=== PATIENT | female | born 1940 | race African-American/Black ===

== ENCOUNTER 2017-06-10 19:09 | Inpatient (IN) | payer OTHER ==
[~2017-06-10] VITALS: Ht 162.6 cm; Wt 65.3 kg
[~2017-06-10 19:09] MED LIST: IOHEXOL-350 100 ML BOTTLE ONE; SODIUM CHLORIDE 0.9% 10ML VIAL ONE
[2017-06-10] MEDS ORDERED: ATOR80TA (19:20)
[2017-06-10] MEDS ORDERED: METO-411 (19:20)
[2017-06-10] MEDS ORDERED: HYDR25TA (19:20)
[2017-06-10] MEDS ORDERED: FLUOXETINE (19:20)
[2017-06-10] MEDS ORDERED: AMLODIPINE (19:20)
[2017-06-10] MEDS ORDERED: SODIUM CHLORIDE 0.9% 500 ML IV ONE (19:27)
[2017-06-10 19:56] LABS: BASOPHILS % 1.1 % (0.0-2.0); EOSINOPHILS % 0.8 % (0.0-5.0); HEMATOCRIT. 37.1 % (36.0-48.0); HEMOGLOBIN. 12.1 g/dL (12.0-16.0); LYMPHOCYTES % 13.5 % (20.0-50.0); MEAN CORPUSCULAR HEMOGLOBIN 28.3 pg (28.0-32.0); MEAN CORPUSCULAR VOLUME 86.5 fL (81.0-99.0); MEAN PLATELET VOLUME 7.7 fl (7.4-10.4); MONOCYTES % 6.3 % (2.0-8.0); NEUTROPHILS % 78.3 % (40.0-76.0); PLATELET 278 x1000/uL (130-400); RED BLOOD CELL COUNT 4.29 mill/uL (4.2-5.4); RED CELL DISTRIBUTION WIDTH 13.6 % (11.6-14.6)
[2017-06-10 20:00] LABS: CHLORIDE 99 mEq/L (98-107)
[2017-06-10 20:01] LABS: INR 1.1; PARTIAL THROMBOPLASTIN TIME 26.4 sec (23.4-31.0); PROTHROMBIN TIME 11.9 sec (9.4-11.6)
[2017-06-10 20:02] LABS: CARBON DIOXIDE 30 mEq/L (21-32)
[2017-06-10 20:10] LABS: CREATINE KINASE 156 IU/L (26-192); CREATINE KINASE MB FRACTION 1.2 ng/mL (0.5-3.6); TROPONIN I < 0.02 ng/mL (0.00-0.04)
[2017-06-10 21:48] LABS: CLARITY URINE CLEAR (CLEAR); COLOR URINE YELLOW (YELLOW); GLUCOSE URINE NEGATIVE (NEGATIVE); KETONES URINE NEGATIVE (NEGATIVE); LEUKOCYTE ESTERASE URINE NEGATIVE (NEGATIVE); NITRITE URINE NEGATIVE (NEGATIVE); OCCULT BLOOD URINE NEGATIVE (NEGATIVE); PROTEIN URINE NEGATIVE (NEGATIVE); SPECIFIC GRAVITY URINE 1.015 (1.005-1.030); UROBILINOGEN URINE 0.2 E.U./dL (0.2-1.0)
[2017-06-10] MEDS ORDERED: MAGNESIUM 1 G PREMIX 100 ML IV ONE (23:30)
[2017-06-10] MEDS ORDERED: HYDROCODONE/ACETAMINOPHEN 5/325MG TABLET PO ONE (23:30)
[2017-06-11] VITALS (8 sets, daily range): BP systolic 104–135; BP diastolic 60–71
[2017-06-11] MEDS ORDERED: AMLO2.5T45 PO (01:46)
[2017-06-11] MEDS ORDERED: ATOR80TA PO (01:46)
[2017-06-11] MEDS ORDERED: LORAZEPAM 1MG TABLET PO NR (08:45)
[2017-06-11] MEDS ORDERED: MEDICATION NOT ON FORMULARY EA (Atorvastatin Calcium (Lipitor) 1 TAB) PO SCH (09:00)
[2017-06-11] MEDS ORDERED: AMLODIPINE 2.5MG TABLET PO SCH (09:00)
[2017-06-11] MEDS ORDERED: AMLODIPINE 5MG TABLET PO SCH (12:45)
[2017-06-11] MEDS: HYDROCODONE/ACETAMINOPHEN 10/325MG TABLET PO PRN ×2 (13:34→20:41)
[2017-06-11] MEDS: ATORVASTATIN CALCIUM 20MG TABLET PO SCH (20:41)
[2017-06-11] MEDS ORDERED: ATORVASTATIN CALCIUM 40MG TABLET PO SCH (21:00)
[2017-06-12 04:01] VITALS: BP 108/59
[2017-06-12 07:21] LABS: *AMPHETAMINES SCREEN URINE NEGATIVE (NEGATIVE); *BARBITURATES SCREEN URINE NEGATIVE (NEGATIVE); *BENZODIAZEPINES SCREEN URINE NEGATIVE (NEGATIVE); *COCAINE SCREEN URINE NEGATIVE (NEGATIVE); CANNABINOID URINE SCREEN NEGATIVE (NEGATIVE); METHADONE URINE SCREEN NEGATIVE (NEGATIVE); OPIATES URINE SCREEN PRESUMTIVE POSITIVE (NEGATIVE); PHENCYCLIDINE URINE SCREEN NEGATIVE (NEGATIVE)
[2017-06-12 08:01] VITALS: BP 120/74
[2017-06-12] MEDS: AMLODIPINE 5MG TABLET PO SCH (09:12)
[2017-06-12 11:56] VITALS: BP 134/74
[2017-06-12 16:00] VITALS: BP 144/62
[2017-06-12] MEDS: HYDROCODONE/ACETAMINOPHEN 10/325MG TABLET PO PRN (17:25)
[2017-06-12 20:00] VITALS: BP_SYST 110; BP_SYST 111; BP_SYST 135; BP_DIAS 47; BP_DIAS 66; BP_DIAS 68
[2017-06-12] MEDS: ATORVASTATIN CALCIUM 20MG TABLET PO SCH (20:41)
[2017-06-13] VITALS: BP 117/54
[2017-06-13 04:00] VITALS: BP 112/60
[2017-06-13 07:13] LABS: HEMATOCRIT 37.5 % (36.0-48.0); HEMOGLOBIN 12.4 g/dL (12.0-16.0); MEAN CORPUSCULAR HEMOGLOBIN 28.8 pg (28.0-32.0); MEAN CORPUSCULAR VOLUME 87.2 fL (81.0-99.0); PLATELET 271 x1000/uL (130-400); RED CELL DISTRIBUTION WIDTH 13.3 % (11.6-14.6)
[2017-06-13 07:40] LABS: CARBON DIOXIDE 32 mEq/L (21-32); CHLORIDE 101 mEq/L (98-107)
[2017-06-13 08:00] VITALS: BP 132/66
[2017-06-13] MEDS: AMLODIPINE 5MG TABLET PO SCH (08:25)
[2017-06-13 12:00] VITALS: BP 135/67
== END 2017-06-13 12:10 | disposition home or self-care (01) | DRG 205 ==
LOC: ER 19:18 → 6WST 19:29 → EDBEDREQ 22:29 → ENRESERV 23:01 → 6WST 06-11 00:25
PROVIDERS: ADMIT Internal Medicine; ATTEND Internal Medicine
DX: M94.0 Chondrocostal junction syndrome [Tietze] (principal); G92 Toxic encephalopathy; R55 Syncope and collapse; E83.42 Hypomagnesemia; E11.9 Type 2 diabetes mellitus without complications; E78.5 Hyperlipidemia, unspecified; I10 Essential (primary) hypertension; J45.909 Unspecified asthma, uncomplicated; I49.9 Cardiac arrhythmia, unspecified; R51 Headache; Z88.0 Allergy status to penicillin
CPT/HCPCS: 36415; 70450; 70551; 71010; 71275; 72125; 80053; 80305; 81003; 82550; 82553; 83735; 83880; 84484; 85025; 85027; 85610; 85730; 93005; 93306; 93880; 97162; 99291; A4216; J3475; J7040; Q9967

== ENCOUNTER 2020-02-20 02:06 | Emergency (ER) | payer OTHER ==
[~2020-02-20] VITALS: Ht 167.6 cm; Wt 65.0 kg
[~2020-02-20 02:06] MED LIST changes: +AMLO2.5T45 PO; +AMLODIPINE; +ATOR80TA; +ATOR80TA PO; +FLUOXETINE; +HYDR25TA; -IOHEXOL-350 100 ML BOTTLE ONE; +METO-411; -SODIUM CHLORIDE 0.9% 10ML VIAL ONE
[2020-02-20] MEDS ORDERED: SODIUM CHLORIDE 0.9% 1,000 ML IV ONE (02:29)
[2020-02-20 03:18] LABS: HEMATOCRIT. 42.2 % (36.0-48.0); HEMOGLOBIN. 14.1 g/dL (12.0-16.0); MEAN CORPUSCULAR HEMOGLOBIN 28.7 pg (28.0-32.0); MEAN CORPUSCULAR VOLUME 85.9 fL (81.0-99.0); MEAN PLATELET VOLUME 8.4 fl (7.4-10.4); PLATELET 186 x1000/uL (130-400); RED BLOOD CELL COUNT 4.91 mill/uL (4.2-5.4); RED CELL DISTRIBUTION WIDTH 14.4 % (11.6-14.6)
[2020-02-20 03:22] LABS: CHLORIDE 101 mEq/L (98-107)
[2020-02-20 04:16] LABS: ATYPICAL LYMPHOCYTES 1; PLATELET ESTIMATE NORMAL
[2020-02-20] MEDS ORDERED: ASPIRIN 325MG EC TABLET PO ONE (04:30)
[2020-02-20] MEDS ORDERED: ACETAMINOPHEN 325MG TABLET PO ONE (05:15)
[2020-02-20 07:03] VITALS: BP 125/64
== END 2020-02-20 07:24 | disposition short-term general hospital (02) ==
LOC: ER 02:06
DX: R55 Syncope and collapse (principal); B02.9 Zoster without complications; J45.909 Unspecified asthma, uncomplicated; E11.9 Type 2 diabetes mellitus without complications; I10 Essential (primary) hypertension; Z88.0 Allergy status to penicillin; Z79.899 Other long term (current) drug therapy
CPT/HCPCS: 36415; 70450; 71045; 80053; 82962; 83690; 84484; 85025; 93005; 96360; 99285; J7030

== ENCOUNTER 2024-03-23 12:48 | Emergency (ER) | payer OTHER ==
[~2024-03-23] VITALS: Ht 165.1 cm; Wt 70.0 kg
[2024-03-23 12:53] VITALS: O2SAT 96
[2024-03-23] MEDS: ATROPINE SULFATE 1MG/10ML SYR IV ONE (13:15)
[2024-03-23] MEDS: LACTATED RINGERS 500 ML IV SCH (13:23)
[2024-03-23 13:34] LABS: BASOPHILS % 0.4 % (0.0-2.0); EOSINOPHILS % 0.7 % (0.0-5.0); HEMOGLOBIN. 12.3 g/dL (12.0-16.0); LYMPHOCYTES % 27.6 % (20.0-50.0); MEAN CORPUSCULAR HEMOGLOBIN 28.8 pg (28.0-32.0); MEAN CORPUSCULAR HGB CONC 32.3 g/dL (31.0-37.0); MEAN PLATELET VOLUME 7.3 fl (7.4-10.4); MONOCYTES % 9.3 % (2.0-8.0); PLATELET 260 x1000/uL (130-400); RED BLOOD CELL COUNT 4.27 mill/uL (4.2-5.4); RED CELL DISTRIBUTION WIDTH 13.6 % (11.6-14.6); WHITE BLOOD COUNT 8.4 x1000/uL (4.5-11.0)
[2024-03-23 13:37] LABS: CHLORIDE 102 mEq/L (98-107); POTASSIUM 5.2 mEq/L (3.5-5.1); SODIUM 138 mEq/L (136-145)
[2024-03-23 13:38] LABS: CARBON DIOXIDE 33 mEq/L (21-32)
[2024-03-23 13:39] LABS: CALCIUM 9.9 mg/dL (8.7-10.4)
[2024-03-23 13:44] LABS: CREATININE 0.7 mg/dL (0.6-1.0); GLUCOSE 122 mg/dL (70-105); TROPONIN I HIGH SENSITIVITY 5 ng/L (3.0-34); UREA NITROGEN BLOOD 8 mg/dL (9-23)
[2024-03-23] MEDS ORDERED: IPRATROPIUM/ALBUTEROL 0.5-3(2.5)MG/3ML NEB HHN PRN (16:00)
[2024-03-23] MEDS ORDERED: CLONIDINE 0.1MG TABLET PO PRN (16:00)
[2024-03-23] MEDS ORDERED: ACETAMINOPHEN 650MG/20.3ML UDC GT PRN (16:00)
[2024-03-23] MEDS ORDERED: HYDROCODONE/ACETAMINOPHEN 5/325MG TABLET PO PRN (16:00)
[2024-03-23] MEDS ORDERED: ONDANSETRON HCL 4MG/2ML INJ IV PRN (16:00)
[2024-03-23] MEDS: MULTIVITAMINS,THER W-MINERALS TABLET PO SCH (16:39)
[2024-03-23] MEDS: SODIUM CHLORIDE 0.9% 1,000 ML IV ONE (17:02)
[2024-03-23] MEDS: ENOXAPARIN 40MG/0.4ML SYR SUBCUT SCH (18:13)
[2024-03-23 22:40] VITALS: BP 151/83; PULSE 83; RESP 18; TEMP 98.4
== END 2024-03-23 22:24 | disposition left against medical advice (07) ==
LOC: ER 12:48 → EDBEDREQTM 14:20 → EDBEDREQ 14:20 → EDBEDREQSVC 21:30 → ER 22:24
DX: E78.5 Hyperlipidemia, unspecified (principal); R55 Syncope and collapse; R00.1 Bradycardia, unspecified; I95.9 Hypotension, unspecified; J44.9 Chronic obstructive pulmonary disease, unspecified; E11.9 Type 2 diabetes mellitus without complications; I10 Essential (primary) hypertension; Z88.0 Allergy status to penicillin
CPT/HCPCS: 99285; 93970; 96374; 96361; 71045; 80048; 85025; 87040; 84484; 36415; 93005; 96372; J0461; J1650